=== PATIENT | female | born 1935 | race African-American/Black ===

== ENCOUNTER 2022-11-21 11:31 | Inpatient (IN) | payer MEDICARE, SELFPAY ==
[2022-11-21 12:49] LABS: Acetaminophen Less than 10.0 mcg/mL (10.0-30.0); Alcohol Less than 10 mg/dL (Less than 10); Hemoglobin 12.3 g/dL (12.0-16.0); Mean Corpuscular Hemoglobin 29.3 pg (27.0-31.0); Mean Corpuscular Volume 91.6 fl (78.0-98.0); Platelet Count 239 10x3/uL (130-400); RBC Distribution Width 12.5 % (11.5-14.5); Salicylate Less than 8.0 mg/dL (15.0-30.0); White Blood Cell (WBC) Count 16.2 10x3/uL (4.8-10.8)
[2022-11-21 13:27] LABS: #Eosinphils 0.1 thou/uL (0.0-0.7); #Lymphocytes 1.7 thou/uL (1.20-3.40); #Monocytes 1.2 thou/uL (0.11-0.59); #Neutrophils 13.2 thou/uL (1.40-6.50); %Basophils 0.1 % (0.0-1.0); %Eosinophils 0.7 % (0.0-10.0); %Lymphocytes 10.6 % (21.0-51.0); %Monocytes 7.3 % (0.0-10.0); %Neutrophils 81.4 % (42.0-75.0); ALT (SGPT) 7 U/L (8-55); AST (SGOT) 15 U/L (5-34); Albumin 2.7 g/dL (3.4-4.8); Alkaline Phosphatase 53 U/L (40-110); Anion Gap 17 mmol/L (10-20); BUN (Urea Nitrogen) 41 mg/dL (9.8-20.1); Band 8 % (5-11); Bilirubin, Total 0.5 mg/dL (0.2-1.2); CK (CPK) 36 U/L (29-168); Calc. Creatinine Clearance 0 mL/min (70-130); Calcium 9.6 mg/dL (7.8-10.44); Carbon Dioxide 23 mmol/L (23-31); Chloride 106 mmol/L (98-107); Eosinophils 1 % (0-10); Estimated GFR 46; Globulin 4.9 g/dL (2.4-3.5); Glucose 209 mg/dL (83-110); Lipase 31 U/L (8-78); Lymphocytes 11 % (21-51); MDiff Complete? YES; Monocytes 6 % (0-10); Neutrophil 74 % (42-75); Platelet Morphology Comment Appears Adequate; Potassium 4.4 mmol/L (3.5-5.1); Protein, Total 7.6 g/dL (5.8-8.1); RBC Morphology Normal; Sodium 142 mmol/L (136-145)
[2022-11-21] MEDS ORDERED: Aspirin Chewable 81 MG TAB ONE (14:13)
[2022-11-21 14:15] LABS: Amphetamine Not Detected (NotDetected); Barbiturates Screen Not Detected (NotDetected); Benzodiazepine Screen Not Detected (NotDetected); Cocaine Metabolite Screen Not Detected (NotDetected); Methadone Not Detected (NotDetected); Methamphetamine Not Detected (NotDetected); Opiate Screen Not Detected (NotDetected); Oxycodone Screen Not Detected (NotDetected); Phencyclidine (PCP) Not Detected (NotDetected); THC/Cannabinoid Screen Not Detected (NotDetected); Tricyclic Screen Not Detected (NotDetected)
[2022-11-21 14:24] LABS: Bacteria/HPF 4+ HPF (None Seen); Bilirubin Negative (Negative); Blood, Urine Trace (Negative); Clarity Turbid (Clear); Glucose, Urine (Dipstick) Normal (Negative); Ketone, Urine Negative (Negative); Leukocyte 250 Leu/uL (Negative); Nitrite Negative (Negative); Protein, Urine (Dipstick) 30 mg/dL (Neg-Trace); Specific Gravity, Urine 1.026 (1.002-1.036); Squamous Epithelial 0-3 HPF (0-3)
[2022-11-21 14:24] LABS: SARS-CoV-2 NAA Rapid Test Not Detected (NotDetected)
[2022-11-21] MEDS ORDERED: Furosemide 20 MG/2 ML VIAL SLOW IVP SCH (15:15)
[2022-11-21 16:01] LABS: Troponin I 0.137 ng/mL (< 0.028)
[2022-11-21] MEDS: cefTRIAXone\\ROCEPHIN 1 GM in Sodium Chloride 0.9% 100 ML IVPB SCH (20:47)
[2022-11-21] MEDS ORDERED: Ondansetron PF 4 MG/2 ML Vial IVP PRN (21:15)
[2022-11-21] MEDS ORDERED: Ondansetron ODT 4 MG TAB SL PRN (21:15)
[2022-11-21] MEDS ORDERED: Sodium Chloride 0.9% 1,000 ML IV SCH (21:15)
[2022-11-22] MEDS: Citalopram 20 MG TAB PO SCH (09:09)
[2022-11-22] MEDS: Amlodipine 5 MG TAB PO SCH (09:09)
[2022-11-22] MEDS ORDERED: Dextrose 5% in Water 1,000 ML IV PRN (09:34)
[2022-11-22] MEDS ORDERED: Dextrose 50% Abboject 50 ML SYRINGE SLOW IVP PRN (09:34)
[2022-11-22] MEDS ORDERED: HumaLOG 300 UNITS/3 ML VIAL SC PRN (09:34)
[2022-11-22] MEDS: Potassium Chloride 10 MEQ TAB PO SCH (13:28)
[2022-11-22] MEDS: cefTRIAXone\\ROCEPHIN 1 GM in Sodium Chloride 0.9% 100 ML IVPB SCH (15:52)
[2022-11-22] MEDS: Atorvastatin Calcium 10 MG TAB PO SCH (19:57)
[2022-11-23 05:46] LABS: #Eosinphils 0.1 thou/uL (0.0-0.7); #Lymphocytes 1.8 thou/uL (1.20-3.40); #Neutrophils 9.8 thou/uL (1.40-6.50); %Basophils 0.1 % (0.0-1.0); %Eosinophils 0.9 % (0.0-10.0); %Lymphocytes 13.9 % (21.0-51.0); %Monocytes 8.1 % (0.0-10.0); %Neutrophils 77.1 % (42.0-75.0); Hemoglobin 10.9 g/dL (12.0-16.0); Mean Corpuscular HGB CONC 31.8 g/dL (32.0-36.0); Mean Corpuscular Hemoglobin 29.7 pg (27.0-31.0); Mean Corpuscular Volume 93.3 fl (78.0-98.0); Platelet Count 240 10x3/uL (130-400); RBC Distribution Width 12.4 % (11.5-14.5); Red Blood Cell (RBC) Count 3.67 mill/uL (4.20-5.40); White Blood Cell (WBC) Count 12.8 10x3/uL (4.8-10.8)
[2022-11-23 06:09] LABS: Anion Gap 13 mmol/L (10-20); BUN (Urea Nitrogen) 26 mg/dL (9.8-20.1); Calc. Creatinine Clearance 59 mL/min (70-130); Calcium 9.4 mg/dL (7.8-10.44); Carbon Dioxide 25 mmol/L (23-31); Chloride 110 mmol/L (98-107); Estimated GFR 75; Glucose 140 mg/dL (83-110); Magnesium 1.7 mg/dL (1.6-2.6); Potassium 3.7 mmol/L (3.5-5.1); Sodium 144 mmol/L (136-145)
[2022-11-23] MEDS: Amlodipine 5 MG TAB PO SCH (08:21)
[2022-11-23] MEDS: Citalopram 20 MG TAB PO SCH (08:21)
[2022-11-23] MEDS: Potassium Chloride 10 MEQ TAB PO SCH (08:21)
[2022-11-23] MEDS ORDERED: Electrolyte Replacement Protocol 1 EACH FS SCH (12:30)
[2022-11-23] MEDS ORDERED: Magnesium 2 GM/50 ML(in water) 2 GM in Premix Bag 1 BAG IVPB SCH (13:15)
[2022-11-23] MEDS: cefTRIAXone\\ROCEPHIN 1 GM in Sodium Chloride 0.9% 100 ML IVPB SCH (17:33)
[2022-11-23] MEDS: Lactated Ringer's 1,000 ML IV SCH (18:24)
[2022-11-23] MEDS: Atorvastatin Calcium 10 MG TAB PO SCH (22:01)
[2022-11-24 05:42] LABS: #Eosinphils 0.1 thou/uL (0.0-0.7); #Lymphocytes 1.7 thou/uL (1.20-3.40); #Monocytes 0.9 thou/uL (0.11-0.59); %Eosinophils 0.7 % (0.0-10.0); %Lymphocytes 14.2 % (21.0-51.0); %Monocytes 7.9 % (0.0-10.0); %Neutrophils 77.2 % (42.0-75.0); Hemoglobin 10.5 g/dL (12.0-16.0); Mean Corpuscular HGB CONC 31.5 g/dL (32.0-36.0); Mean Corpuscular Hemoglobin 29.1 pg (27.0-31.0); Mean Corpuscular Volume 92.5 fl (78.0-98.0); Mean Platelet Volume 9.2 fL (7.4-10.4); Platelet Count 251 10x3/uL (130-400); RBC Distribution Width 12.6 % (11.5-14.5); White Blood Cell (WBC) Count 11.6 10x3/uL (4.8-10.8)
[2022-11-24 06:16] LABS: Anion Gap 13 mmol/L (10-20); BUN (Urea Nitrogen) 20 mg/dL (9.8-20.1); Calc. Creatinine Clearance 62 mL/min (70-130); Carbon Dioxide 27 mmol/L (23-31); Chloride 108 mmol/L (98-107); Estimated GFR 79; Glucose 130 mg/dL (83-110); Magnesium 1.9 mg/dL (1.6-2.6); Potassium 3.6 mmol/L (3.5-5.1); Sodium 144 mmol/L (136-145)
[2022-11-24] MEDS: Citalopram 20 MG TAB PO SCH (08:17)
[2022-11-24] MEDS: Potassium Chloride 10 MEQ TAB PO SCH (08:17)
[2022-11-24] MEDS: Metoprolol Tartrate 50 MG TAB PO SCH ×2 (08:18→08:30)
[2022-11-24] MEDS: Lactated Ringer's 1,000 ML IV SCH ×2 (08:18→09:41)
[2022-11-24] MEDS ORDERED: Magnesium 2 GM/50 ML(in water) 2 GM in Premix Bag 1 BAG IVPB SCH (09:00)
[2022-11-24] MEDS ORDERED: FLU VACC QS2022-23(65YR UP)/PF 240 MCG/0.7 ML SYRINGE IM ONE (09:00)
[2022-11-24] MEDS ORDERED: Furosemide 20 MG TAB PO SCH (11:45)
[2022-11-24] MEDS: HumaLOG 300 UNITS/3 ML VIAL SC PRN (12:34)
[2022-11-24] MEDS: cefTRIAXone\\ROCEPHIN 1 GM in Sodium Chloride 0.9% 100 ML IVPB SCH (15:18)
[2022-11-24] MEDS: Acetaminophen 325 MG TAB PO PRN (15:20)
[2022-11-24] MEDS: Carvedilol 6.25 MG TAB PO SCH (17:47)
[2022-11-24] MEDS: Atorvastatin Calcium 10 MG TAB PO SCH (21:19)
[2022-11-25 06:20] LABS: #Eosinphils 0.2 thou/uL (0.0-0.7); #Lymphocytes 1.4 thou/uL (1.20-3.40); #Monocytes 0.9 thou/uL (0.11-0.59); #Neutrophils 8.2 thou/uL (1.40-6.50); %Basophils 0.1 % (0.0-1.0); %Eosinophils 1.5 % (0.0-10.0); %Lymphocytes 12.8 % (21.0-51.0); %Monocytes 8.2 % (0.0-10.0); %Neutrophils 77.4 % (42.0-75.0); Hemoglobin 11.5 g/dL (12.0-16.0); Mean Corpuscular HGB CONC 31.5 g/dL (32.0-36.0); Mean Corpuscular Hemoglobin 29.3 pg (27.0-31.0); Mean Corpuscular Volume 92.8 fl (78.0-98.0); Mean Platelet Volume 9.2 fL (7.4-10.4); Platelet Count 252 10x3/uL (130-400); RBC Distribution Width 12.6 % (11.5-14.5); Red Blood Cell (RBC) Count 3.94 mill/uL (4.20-5.40); White Blood Cell (WBC) Count 10.6 10x3/uL (4.8-10.8)
[2022-11-25 06:42] LABS: Anion Gap 11 mmol/L (10-20); BUN (Urea Nitrogen) 15 mg/dL (9.8-20.1); Calc. Creatinine Clearance 70 mL/min (70-130); Calcium 9.1 mg/dL (7.8-10.44); Carbon Dioxide 29 mmol/L (23-31); Cardiac Risk 4.1 (Less than 4.5); Chloride 107 mmol/L (98-107); Cholesterol 99 mg/dl (< 200 Desired); Estimated GFR 85; Glucose 104 mg/dL (83-110); HDL Cholesterol 24 mg/dL (>60 Neg Risk); LDL Cholesterol, Calculated 56 mg/dL; Sodium 143 mmol/L (136-145); Triglycerides 93 mg/dL (Less than 150)
[2022-11-25] MEDS ORDERED: Magnesium 2 GM/50 ML(in water) 2 GM in Premix Bag 1 BAG IVPB SCH (08:00)
[2022-11-25] MEDS: Potassium Chloride 10 MEQ TAB PO SCH (08:51)
[2022-11-25] MEDS: Furosemide 20 MG TAB PO SCH (08:51)
[2022-11-25] MEDS: Carvedilol 6.25 MG TAB PO SCH ×2 (08:51→16:04)
[2022-11-25] MEDS: Citalopram 20 MG TAB PO SCH (08:51)
[2022-11-25] MEDS: cefTRIAXone\\ROCEPHIN 1 GM in Sodium Chloride 0.9% 100 ML IVPB SCH (16:04)
[2022-11-25] MEDS: HumaLOG 300 UNITS/3 ML VIAL SC PRN (17:05)
[2022-11-25] MEDS: Atorvastatin Calcium 10 MG TAB PO SCH (21:24)
[2022-11-26] MEDS: Citalopram 20 MG TAB PO SCH (09:05)
[2022-11-26] MEDS: Carvedilol 6.25 MG TAB PO SCH ×2 (09:05→16:52)
[2022-11-26] MEDS: Potassium Chloride 10 MEQ TAB PO SCH (09:05)
[2022-11-26] MEDS: Furosemide 20 MG TAB PO SCH (09:05)
[2022-11-26] MEDS: Atorvastatin Calcium 10 MG TAB PO SCH (23:17)
[2022-11-27] MEDS: Carvedilol 6.25 MG TAB PO SCH ×2 (09:31→18:20)
[2022-11-27] MEDS: Furosemide 20 MG TAB PO SCH (09:31)
[2022-11-27] MEDS: Citalopram 20 MG TAB PO SCH (09:31)
[2022-11-27] MEDS ORDERED: Potassium Bicarbonate/Cit Ac 20 MEQ TAB PO SCH (09:45)
[2022-11-27] MEDS: Potassium Chloride 10 MEQ TAB PO SCH (11:09)
[2022-11-27] MEDS ORDERED: PNEUMOC 20-VAL CONJ-DIP CRM/PF 0.5 ML SYRINGE IM ONE (13:45)
[2022-11-27 17:28] LABS: Magnesium 1.7 mg/dL (1.6-2.6)
[2022-11-27] MEDS ORDERED: Magnesium 2 GM/50 ML(in water) 2 GM in Premix Bag 1 BAG IVPB SCH (18:00)
[2022-11-27] MEDS: Acetaminophen 325 MG TAB PO PRN (18:20)
[2022-11-27] MEDS: Atorvastatin Calcium 10 MG TAB PO SCH (21:16)
[2022-11-28 06:28] LABS: Magnesium 2.1 mg/dL (1.6-2.6)
[2022-11-28] MEDS ORDERED: FLU VACC QS2022-23(65YR UP)/PF 240 MCG/0.7 ML SYRINGE IM ONE (09:00)
[2022-11-28] MEDS: Carvedilol 6.25 MG TAB PO SCH ×2 (09:03→17:59)
[2022-11-28] MEDS: Citalopram 20 MG TAB PO SCH (09:03)
[2022-11-28] MEDS: Furosemide 20 MG TAB PO SCH (09:03)
[2022-11-28] MEDS: Potassium Bicarbonate/Cit Ac 20 MEQ TAB PO SCH (09:04)
[2022-11-28] MEDS: Atorvastatin Calcium 10 MG TAB PO SCH (21:18)
[2022-11-28] MEDS: Acetaminophen 325 MG TAB PO PRN (21:19)
[2022-11-29] MEDS: Atorvastatin Calcium 10 MG TAB PO SCH ×2 (01:30→20:54)
[2022-11-29] MEDS: Potassium Bicarbonate/Cit Ac 20 MEQ TAB PO SCH (08:42)
[2022-11-29] MEDS: Citalopram 20 MG TAB PO SCH (08:42)
[2022-11-29] MEDS: Furosemide 20 MG TAB PO SCH (08:43)
[2022-11-29] MEDS: Carvedilol 6.25 MG TAB PO SCH ×2 (08:43→17:24)
[2022-11-29] MEDS: Acetaminophen 325 MG TAB PO PRN (20:54)
[2022-11-30] MEDS: Carvedilol 6.25 MG TAB PO SCH ×2 (08:15→17:30)
[2022-11-30] MEDS: Citalopram 20 MG TAB PO SCH (08:16)
[2022-11-30] MEDS: Potassium Bicarbonate/Cit Ac 20 MEQ TAB PO SCH (08:16)
[2022-11-30] MEDS: Furosemide 20 MG TAB PO SCH (08:26)
[2022-11-30] MEDS: HumaLOG 300 UNITS/3 ML VIAL SC PRN (17:30)
[2022-11-30] MEDS: Atorvastatin Calcium 10 MG TAB PO SCH (21:29)
[2022-11-30] MEDS: Acetaminophen 325 MG TAB PO PRN (21:29)
[2022-12-01 05:37] LABS: #Eosinphils 0.1 thou/uL (0.0-0.7); #Lymphocytes 1.9 thou/uL (1.20-3.40); #Monocytes 1.2 thou/uL (0.11-0.59); %Basophils 0.1 % (0.0-1.0); %Eosinophils 0.7 % (0.0-10.0); %Lymphocytes 14.5 % (21.0-51.0); %Monocytes 9.4 % (0.0-10.0); %Neutrophils 75.3 % (42.0-75.0); Mean Corpuscular HGB CONC 30.7 g/dL (32.0-36.0); Mean Corpuscular Hemoglobin 28.1 pg (27.0-31.0); Mean Corpuscular Volume 91.5 fl (78.0-98.0); Mean Platelet Volume 8.7 fL (7.4-10.4); Platelet Count 279 10x3/uL (130-400); RBC Distribution Width 12.9 % (11.5-14.5); Red Blood Cell (RBC) Count 3.55 mill/uL (4.20-5.40); White Blood Cell (WBC) Count 13.3 10x3/uL (4.8-10.8)
[2022-12-01 05:56] LABS: Anion Gap 12 mmol/L (10-20); BUN (Urea Nitrogen) 32 mg/dL (9.8-20.1); Calc. Creatinine Clearance 60 mL/min (70-130); Calcium 9.3 mg/dL (7.8-10.44); Carbon Dioxide 27 mmol/L (23-31); Chloride 105 mmol/L (98-107); Estimated GFR 74; Glucose 172 mg/dL (83-110); Magnesium 1.8 mg/dL (1.6-2.6); Sodium 140 mmol/L (136-145)
[2022-12-01] MEDS ORDERED: Magnesium 2 GM/50 ML(in water) 2 GM in Premix Bag 1 BAG IVPB SCH (08:00)
[2022-12-01] MEDS: Carvedilol 6.25 MG TAB PO SCH ×2 (08:37→16:39)
[2022-12-01] MEDS: Citalopram 20 MG TAB PO SCH (08:38)
[2022-12-01] MEDS: Furosemide 20 MG TAB PO SCH (08:38)
[2022-12-01] MEDS: Potassium Bicarbonate/Cit Ac 20 MEQ TAB PO SCH (08:38)
[2022-12-01] MEDS: Acetaminophen 325 MG TAB PO SCH ×2 (16:38→21:51)
[2022-12-01] MEDS: Atorvastatin Calcium 10 MG TAB PO SCH (21:51)
[2022-12-01] MEDS: Gabapentin 300 MG CAP PO SCH (21:52)
[2022-12-02 05:23] LABS: #Eosinphils 0.1 thou/uL (0.0-0.7); #Lymphocytes 2.3 thou/uL (1.20-3.40); #Monocytes 1.1 thou/uL (0.11-0.59); #Neutrophils 9.7 thou/uL (1.40-6.50); %Lymphocytes 17.1 % (21.0-51.0); %Monocytes 8.5 % (0.0-10.0); %Neutrophils 73.4 % (42.0-75.0); Mean Corpuscular HGB CONC 31.2 g/dL (32.0-36.0); Mean Corpuscular Hemoglobin 28.6 pg (27.0-31.0); Mean Corpuscular Volume 91.6 fl (78.0-98.0); Mean Platelet Volume 8.5 fL (7.4-10.4); Platelet Count 283 10x3/uL (130-400); RBC Distribution Width 12.9 % (11.5-14.5); Red Blood Cell (RBC) Count 3.49 mill/uL (4.20-5.40); White Blood Cell (WBC) Count 13.2 10x3/uL (4.8-10.8)
[2022-12-02 05:42] LABS: Anion Gap 12 mmol/L (10-20); BUN (Urea Nitrogen) 30 mg/dL (9.8-20.1); Calc. Creatinine Clearance 60 mL/min (70-130); Calcium 9.2 mg/dL (7.8-10.44); Carbon Dioxide 30 mmol/L (23-31); Chloride 103 mmol/L (98-107); Estimated GFR 74; Glucose 134 mg/dL (83-110); Potassium 3.9 mmol/L (3.5-5.1); Sodium 141 mmol/L (136-145)
[2022-12-02] MEDS ORDERED: Magnesium 2 GM/50 ML(in water) 2 GM in Premix Bag 1 BAG IVPB SCH (08:00)
[2022-12-02] MEDS: Citalopram 20 MG TAB PO SCH (08:50)
[2022-12-02] MEDS: Potassium Bicarbonate/Cit Ac 20 MEQ TAB PO SCH (08:50)
[2022-12-02] MEDS: Acetaminophen 325 MG TAB PO SCH ×4 (08:50→21:53)
[2022-12-02] MEDS: Gabapentin 300 MG CAP PO SCH ×3 (08:51→21:53)
[2022-12-02] MEDS: Carvedilol 6.25 MG TAB PO SCH ×2 (08:52→17:40)
[2022-12-02] MEDS ORDERED: Furosemide 40 MG/4 ML VIAL SLOW IVP SCH (09:00)
[2022-12-02] MEDS ORDERED: PNEUMOC 20-VAL CONJ-DIP CRM/PF 0.5 ML SYRINGE IM ONE (12:15)
[2022-12-02] MEDS: HumaLOG 300 UNITS/3 ML VIAL SC PRN (17:43)
[2022-12-02] MEDS: Atorvastatin Calcium 10 MG TAB PO SCH (21:54)
[2022-12-03 05:39] LABS: #Eosinphils 0.1 thou/uL (0.0-0.7); #Lymphocytes 2.4 thou/uL (1.20-3.40); #Monocytes 1.2 thou/uL (0.11-0.59); %Basophils 0.3 % (0.0-1.0); %Eosinophils 0.7 % (0.0-10.0); %Lymphocytes 16.1 % (21.0-51.0); %Monocytes 7.8 % (0.0-10.0); %Neutrophils 75.1 % (42.0-75.0); Hemoglobin 10.3 g/dL (12.0-16.0); Mean Corpuscular HGB CONC 31.6 g/dL (32.0-36.0); Mean Corpuscular Hemoglobin 28.9 pg (27.0-31.0); Mean Corpuscular Volume 91.6 fl (78.0-98.0); Mean Platelet Volume 8.7 fL (7.4-10.4); Platelet Count 289 10x3/uL (130-400); Red Blood Cell (RBC) Count 3.56 mill/uL (4.20-5.40); White Blood Cell (WBC) Count 14.6 10x3/uL (4.8-10.8)
[2022-12-03] MEDS: Gabapentin 300 MG CAP PO SCH ×2 (09:21→11:13)
[2022-12-03] MEDS: Acetaminophen 325 MG TAB PO SCH ×2 (09:22→16:39)
[2022-12-03] MEDS: Citalopram 20 MG TAB PO SCH (09:23)
[2022-12-03] MEDS: Potassium Bicarbonate/Cit Ac 20 MEQ TAB PO SCH (09:23)
[2022-12-03] MEDS: Carvedilol 6.25 MG TAB PO SCH ×2 (09:23→16:40)
[2022-12-03] MEDS: Furosemide 20 MG TAB PO SCH (09:29)
[2022-12-03] MEDS: HumaLOG 300 UNITS/3 ML VIAL SC PRN (11:14)
[2022-12-03 11:29] LABS: Bacteria/HPF None Seen HPF (None Seen); Bilirubin Negative (Negative); Blood, Urine Negative (Negative); CAUTI Indications for Culture Fever or rigors; Clarity Clear (Clear); Glucose, Urine (Dipstick) Normal (Negative); Ketone, Urine Negative (Negative); Leukocyte Negative Leu/uL (Negative); Nitrite Negative (Negative); Protein, Urine (Dipstick) Negative (Neg-Trace); RBC/HPF None Seen HPF (0-3); Specific Gravity, Urine 1.021 (1.002-1.036); Squamous Epithelial 0-3 HPF (0-3); Urobilinogen Normal mg/dL (Less than 2); WBC/HPF 0-3 HPF (0-3); pH, Urine 5.5 (5.0-9.0)
[2022-12-03 11:33] LABS: Urine Culture Reflex No No
[2022-12-03 14:08] VITALS: BMI 26.2
[2022-12-03 16:19] VITALS: BP 116/57; TEMP 97.6
== END 2022-12-03 17:28 | DRG 871 ==
LOC: ERS 11:31 → ERHOLD 14:01 → NEURO 20:11
PROVIDERS: ADMIT Internal Medicine; ATTEND Internal Medicine
DX: A41.4 Sepsis due to anaerobes (principal); Z66 Do not resuscitate; Z20.822 Contact with and (suspected) exposure to COVID-19; Z23 Encounter for immunization; G93.41 Metabolic encephalopathy; I50.23 Acute on chronic systolic (congestive) heart failure; N39.0 Urinary tract infection, site not specified; Z16.11 Resistance to penicillins; I47.1 Supraventricular tachycardia; E46 Unspecified protein-calorie malnutrition; F03.94 Unspecified dementia, unspecified severity, with anxiety; E11.9 Type 2 diabetes mellitus without complications; I11.0 Hypertensive heart disease with heart failure; M46.1 Sacroiliitis, not elsewhere classified; I48.0 Paroxysmal atrial fibrillation; E78.5 Hyperlipidemia, unspecified; Z68.26 Body mass index [BMI] 26.0-26.9, adult; Z88.4 Allergy status to anesthetic agent; Z79.899 Other long term (current) drug therapy; Z90.49 Acquired absence of other specified parts of digestive tract
CPT/HCPCS: 36415; 36416; 70450; 71045; 72170; 78451; 80048; 80053; 80061; 80306; 80307; 81001; 81003; 81015; 82140; 82550; 82553; 83605; 83690; 83735; 83880; 84443; 84484; 85025; 87040; 87077; 87086; 87186; 87811; 90471; 90662; 93005; 93306; 93798; 90677; A9500; G0008; G0009; J0696; J1650; J1815; J1940; J3475; J3490; J7050; J7120

== ENCOUNTER 2022-12-25 18:15 | Inpatient (IN) | payer MEDICARE ==
[~2022-12-25 18:15] MED LIST: Iopamidol-370 76% 500 ML 1 ML ONE
[2022-12-25 18:32] LABS: #Eosinphils 0.1 thou/uL (0.0-0.7); #Lymphocytes 3.3 thou/uL (1.20-3.40); #Monocytes 0.9 thou/uL (0.11-0.59); #Neutrophils 12.4 thou/uL (1.40-6.50); %Eosinophils 0.7 % (0.0-10.0); %Lymphocytes 19.9 % (21.0-51.0); %Monocytes 5.6 % (0.0-10.0); %Neutrophils 73.7 % (42.0-75.0); Mean Corpuscular HGB CONC 30.4 g/dL (32.0-36.0); Mean Corpuscular Hemoglobin 27.9 pg (27.0-31.0); Mean Corpuscular Volume 91.6 fl (78.0-98.0); Mean Platelet Volume 8.6 fL (7.4-10.4); Platelet Count 296 10x3/uL (130-400); White Blood Cell (WBC) Count 16.8 10x3/uL (4.8-10.8)
[2022-12-25 18:39] LABS: Prothrombin Time 16.8 sec (12.0-14.7)
[2022-12-25 18:41] LABS: INR-International Normal Ratio 1.3; PTT 21.8 sec (22.9-36.1)
[2022-12-25 18:52] LABS: ALT (SGPT) 8 U/L (8-55); AST (SGOT) 26 U/L (5-34); Albumin 2.3 g/dL (3.4-4.8); Alkaline Phosphatase 43 U/L (40-110); Anion Gap 16 mmol/L (10-20); BUN (Urea Nitrogen) 35 mg/dL (9.8-20.1); Bilirubin, Total 0.4 mg/dL (0.2-1.2); CK (CPK) 1062 U/L (29-168); Calc. Creatinine Clearance 0 mL/min (70-130); Calcium 9.1 mg/dL (7.8-10.44); Carbon Dioxide 23 mmol/L (23-31); Chloride 106 mmol/L (98-107); Estimated GFR 31; Globulin 4.8 g/dL (2.4-3.5); Glucose 191 mg/dL (83-110); Potassium 5.2 mmol/L (3.5-5.1); Protein, Total 7.1 g/dL (5.8-8.1); Sodium 140 mmol/L (136-145)
[2022-12-25 19:13] LABS: CKMB 14.5 ng/mL (0-6.6)
[2022-12-25 19:53] LABS: Bacteria/HPF 4+ HPF (None Seen); Bilirubin 1+ (Negative); Blood, Urine Negative (Negative); Clarity Turbid (Clear); Glucose, Urine (Dipstick) Normal (Negative); Ketone, Urine Trace mg/dL (Negative); Leukocyte Negative Leu/uL (Negative); Nitrite Negative (Negative); Protein, Urine (Dipstick) 50 mg/dL (Neg-Trace); RBC/HPF 0-3 HPF (0-3); Specific Gravity, Urine 1.026 (1.002-1.036); WBC/HPF 0-3 HPF (0-3); pH, Urine 5.5 (5.0-9.0)
[2022-12-25] MEDS ORDERED: Aspirin 300 MG Suppository ONE (20:14)
[2022-12-25] MEDS ORDERED: cefTRIAXone\\ROCEPHIN 2 GM VIAL ONE (20:14)
[2022-12-25] MEDS ORDERED: Bisacodyl 10 MG SUPP PR PRN (21:56)
[2022-12-25] MEDS ORDERED: Ondansetron PF 4 MG/2 ML Vial IVP PRN (21:56)
[2022-12-25] MEDS ORDERED: Ondansetron ODT 4 MG TAB PO PRN (21:56)
[2022-12-25] MEDS ORDERED: Senokot S 8.6-50 MG TAB PO PRN (21:56)
[2022-12-25] MEDS ORDERED: Acetaminophen 650 MG Suppository PR PRN (21:56)
[2022-12-25] MEDS ORDERED: Bisacodyl 5 MG TAB PO PRN (21:56)
[2022-12-25] MEDS ORDERED: Dextrose 5% in Water 1,000 ML IV PRN (22:03)
[2022-12-25] MEDS ORDERED: HumaLOG 300 UNITS/3 ML VIAL SC PRN (22:03)
[2022-12-25] MEDS ORDERED: Dextrose 50% Abboject 50 ML SYRINGE SLOW IVP PRN (22:03)
[2022-12-25] MEDS ORDERED: Dextrose 5%-Lactated Ringers 1,000 ML IV SCH (22:15)
[2022-12-25 22:18] LABS: Troponin I 0.174 ng/mL (< 0.028)
[2022-12-26 00:23] VITALS: BMI 24.3
[2022-12-26 01:31] LABS: Troponin I 0.176 ng/mL (< 0.028)
[2022-12-26 04:59] LABS: Anion Gap 16 mmol/L (10-20); BUN (Urea Nitrogen) 39 mg/dL (9.8-20.1); Calc. Creatinine Clearance 28 mL/min (70-130); Calcium 8.9 mg/dL (7.8-10.44); Carbon Dioxide 25 mmol/L (23-31); Cardiac Risk 6.4 (Less than 4.5); Chloride 104 mmol/L (98-107); Cholesterol 122 mg/dl (< 200 Desired); Estimated GFR 33; Glucose 156 mg/dL (83-110); HDL Cholesterol 19 mg/dL (>60 Neg Risk); LDL Cholesterol, Calculated 68 mg/dL; Sodium 141 mmol/L (136-145); Triglycerides 173 mg/dL (Less than 150)
[2022-12-26] MEDS ORDERED: Famotidine/PF 20 mg/2ml Vial SLOW IVP SCH ×2 (09:00→10:00)
[2022-12-26] MEDS ORDERED: Famotidine 20 MG TAB PO SCH (09:00)
[2022-12-26] MEDS: Carvedilol 6.25 MG TAB PO SCH ×2 (09:39→17:04)
[2022-12-26] MEDS: Gabapentin 300 MG CAP PO SCH ×3 (09:39→21:40)
[2022-12-26] MEDS: Heparin 5,000 UNITS/ML VIAL SC SCH ×2 (11:10→21:41)
[2022-12-26] MEDS: Furosemide 20 MG TAB PO SCH (16:55)
[2022-12-26] MEDS: Citalopram 20 MG TAB PO SCH (16:55)
[2022-12-26] MEDS: Aspirin 81 mg Enteric Coated Tablet PO SCH (16:56)
[2022-12-26] MEDS ORDERED: Gabapentin 300 MG CAP PO SCH (21:00)
[2022-12-26] MEDS ORDERED: Atorvastatin Calcium 10 MG TAB PO SCH (21:00)
[2022-12-27 04:53] LABS: #Basophils 0.1 thou/uL (0.0-0.2); #Eosinphils 0.1 thou/uL (0.0-0.7); #Lymphocytes 2.5 thou/uL (1.20-3.40); #Monocytes 1.2 thou/uL (0.11-0.59); #Neutrophils 10.6 thou/uL (1.40-6.50); %Basophils 0.6 % (0.0-1.0); %Eosinophils 0.6 % (0.0-10.0); %Lymphocytes 17.2 % (21.0-51.0); %Monocytes 8.3 % (0.0-10.0); %Neutrophils 73.4 % (42.0-75.0); Hemoglobin 9.8 g/dL (12.0-16.0); Mean Corpuscular HGB CONC 30.5 g/dL (32.0-36.0); Mean Corpuscular Hemoglobin 28.1 pg (27.0-31.0); Mean Platelet Volume 8.3 fL (7.4-10.4); Platelet Count 293 10x3/uL (130-400); RBC Distribution Width 14.2 % (11.5-14.5); Red Blood Cell (RBC) Count 3.47 mill/uL (4.20-5.40); White Blood Cell (WBC) Count 14.5 10x3/uL (4.8-10.8)
[2022-12-27 05:20] LABS: Anion Gap 13 mmol/L (10-20); BUN (Urea Nitrogen) 38 mg/dL (9.8-20.1); CK (CPK) 1234 U/L (29-168); Calc. Creatinine Clearance 35 mL/min (70-130); Calcium 8.9 mg/dL (7.8-10.44); Carbon Dioxide 27 mmol/L (23-31); Chloride 107 mmol/L (98-107); Estimated GFR 44; Glucose 119 mg/dL (83-110); Potassium 3.9 mmol/L (3.5-5.1); Sodium 143 mmol/L (136-145)
[2022-12-27] MEDS ORDERED: Lactated Ringer's 1,000 ML IV SCH (07:15)
[2022-12-27] MEDS: Famotidine/PF 20 mg/2ml Vial SLOW IVP SCH ×2 (09:47→09:48)
[2022-12-27] MEDS: Citalopram 20 MG TAB PO SCH (09:48)
[2022-12-27] MEDS: Gabapentin 300 MG CAP PO SCH ×3 (09:48→22:51)
[2022-12-27] MEDS: Carvedilol 6.25 MG TAB PO SCH ×2 (09:49→18:13)
[2022-12-27] MEDS: Furosemide 20 MG TAB PO SCH (09:49)
[2022-12-27] MEDS: Aspirin 81 mg Enteric Coated Tablet PO SCH (09:49)
[2022-12-27] MEDS: Heparin 5,000 UNITS/ML VIAL SC SCH ×2 (09:49→22:50)
[2022-12-27] MEDS: Famotidine 20 MG TAB PO SCH (10:00)
[2022-12-27] MEDS ORDERED: Lactated Ringer's 500 ML IV SCH (18:00)
[2022-12-27] MEDS ORDERED: SODIUM CHLORIDE 0.9% IVPB SCH (18:00)
[2022-12-27] MEDS ORDERED: AMPICILLIN IVPB SCH (18:00)
[2022-12-27] MEDS: Lactated Ringer's 1,000 ML IV SCH (18:14)
[2022-12-27] MEDS: AMPicillin 1 GM in Sodium Chloride 0.9% 100 ML IVPB SCH (18:41)
[2022-12-27] MEDS: Atorvastatin Calcium 40 MG TAB PO SCH (22:52)
[2022-12-28] MEDS: AMPicillin 1 GM in Sodium Chloride 0.9% 100 ML IVPB SCH ×3 (02:32→17:53)
[2022-12-28] MEDS ORDERED: Nitroglycerin 0.4 MG TAB (25 Tab Bottle) SL PRN (04:34)
[2022-12-28 04:35] LABS: #Eosinphils 0.1 thou/uL (0.0-0.7); #Lymphocytes 2.1 thou/uL (1.20-3.40); #Neutrophils 7.8 thou/uL (1.40-6.50); %Basophils 0.1 % (0.0-1.0); %Eosinophils 0.9 % (0.0-10.0); %Lymphocytes 18.8 % (21.0-51.0); %Monocytes 8.9 % (0.0-10.0); %Neutrophils 71.3 % (42.0-75.0); Hemoglobin 9.1 g/dL (12.0-16.0); Mean Corpuscular HGB CONC 30.9 g/dL (32.0-36.0); Mean Corpuscular Hemoglobin 28.5 pg (27.0-31.0); Mean Corpuscular Volume 92.3 fl (78.0-98.0); Mean Platelet Volume 8.6 fL (7.4-10.4); Platelet Count 252 10x3/uL (130-400); RBC Distribution Width 14.1 % (11.5-14.5); Red Blood Cell (RBC) Count 3.19 mill/uL (4.20-5.40)
[2022-12-28] MEDS: Lactated Ringer's 1,000 ML IV SCH ×2 (04:59→16:40)
[2022-12-28 05:01] LABS: Anion Gap 11 mmol/L (10-20); BUN (Urea Nitrogen) 31 mg/dL (9.8-20.1); CK (CPK) 540 U/L (29-168); Calc. Creatinine Clearance 54 mL/min (70-130); Calcium 8.8 mg/dL (7.8-10.44); Carbon Dioxide 28 mmol/L (23-31); Chloride 106 mmol/L (98-107); Estimated GFR 74; Glucose 134 mg/dL (83-110); Magnesium 1.5 mg/dL (1.6-2.6); Potassium 3.5 mmol/L (3.5-5.1); Sodium 141 mmol/L (136-145)
[2022-12-28 05:33] LABS: Troponin I 0.084 ng/mL (< 0.028)
[2022-12-28] MEDS: Furosemide 20 MG TAB PO SCH ×2 (09:49→11:12)
[2022-12-28] MEDS: Heparin 5,000 UNITS/ML VIAL SC SCH ×2 (11:12→21:46)
[2022-12-28] MEDS: Carvedilol 6.25 MG TAB PO SCH ×2 (11:14→16:38)
[2022-12-28] MEDS: Gabapentin 300 MG CAP PO SCH ×3 (11:14→21:40)
[2022-12-28] MEDS: Citalopram 20 MG TAB PO SCH (11:16)
[2022-12-28] MEDS: Famotidine 20 MG TAB PO SCH (11:17)
[2022-12-28] MEDS: Aspirin 81 mg Enteric Coated Tablet PO SCH (11:19)
[2022-12-28] MEDS: Atorvastatin Calcium 40 MG TAB PO SCH (21:40)
[2022-12-29] MEDS: AMPicillin 1 GM in Sodium Chloride 0.9% 100 ML IVPB SCH ×4 (02:07→23:15)
[2022-12-29 05:03] LABS: #Basophils 0.1 thou/uL (0.0-0.2); #Eosinphils 0.1 thou/uL (0.0-0.7); #Lymphocytes 2.3 thou/uL (1.20-3.40); #Neutrophils 6.9 thou/uL (1.40-6.50); %Basophils 0.7 % (0.0-1.0); %Eosinophils 1.1 % (0.0-10.0); %Monocytes 9.3 % (0.0-10.0); %Neutrophils 66.9 % (42.0-75.0); Hemoglobin 9.3 g/dL (12.0-16.0); Mean Corpuscular HGB CONC 31.8 g/dL (32.0-36.0); Mean Corpuscular Volume 91.1 fl (78.0-98.0); Mean Platelet Volume 8.4 fL (7.4-10.4); Platelet Count 241 10x3/uL (130-400); RBC Distribution Width 14.2 % (11.5-14.5); Red Blood Cell (RBC) Count 3.19 mill/uL (4.20-5.40); White Blood Cell (WBC) Count 10.3 10x3/uL (4.8-10.8)
[2022-12-29 05:26] LABS: Anion Gap 15 mmol/L (10-20); BUN (Urea Nitrogen) 23 mg/dL (9.8-20.1); CK (CPK) 260 U/L (29-168); Calc. Creatinine Clearance 63 mL/min (70-130); Carbon Dioxide 25 mmol/L (23-31); Chloride 107 mmol/L (98-107); Estimated GFR 85; Glucose 126 mg/dL (83-110); Potassium 3.6 mmol/L (3.5-5.1); Sodium 143 mmol/L (136-145)
[2022-12-29] MEDS: Heparin 5,000 UNITS/ML VIAL SC SCH ×2 (08:18→21:03)
[2022-12-29] MEDS: Citalopram 20 MG TAB PO SCH (08:20)
[2022-12-29] MEDS: Gabapentin 300 MG CAP PO SCH ×3 (08:20→21:03)
[2022-12-29] MEDS: Furosemide 20 MG TAB PO SCH (08:21)
[2022-12-29] MEDS: Famotidine 20 MG TAB PO SCH (08:21)
[2022-12-29] MEDS: Carvedilol 6.25 MG TAB PO SCH ×2 (08:21→18:19)
[2022-12-29] MEDS: Aspirin 81 mg Enteric Coated Tablet PO SCH (08:22)
[2022-12-29] MEDS ORDERED: Magnesium 2 GM/50 ML(in water) 2 GM in Premix Bag 1 BAG IVPB SCH (16:45)
[2022-12-29] MEDS: Atorvastatin Calcium 40 MG TAB PO SCH (21:03)
[2022-12-30 06:03] LABS: #Basophils 0.1 thou/uL (0.0-0.2); #Eosinphils 0.1 thou/uL (0.0-0.7); #Lymphocytes 2.6 thou/uL (1.20-3.40); #Neutrophils 5.8 thou/uL (1.40-6.50); %Basophils 0.8 % (0.0-1.0); %Lymphocytes 26.6 % (21.0-51.0); %Monocytes 10.8 % (0.0-10.0); %Neutrophils 60.8 % (42.0-75.0); Hemoglobin 8.8 g/dL (12.0-16.0); Mean Corpuscular HGB CONC 31.1 g/dL (32.0-36.0); Mean Corpuscular Hemoglobin 28.3 pg (27.0-31.0); Mean Platelet Volume 8.2 fL (7.4-10.4); Platelet Count 238 10x3/uL (130-400); RBC Distribution Width 14.5 % (11.5-14.5); White Blood Cell (WBC) Count 9.6 10x3/uL (4.8-10.8)
[2022-12-30] MEDS: AMPicillin 1 GM in Sodium Chloride 0.9% 100 ML IVPB SCH ×4 (06:37→23:57)
[2022-12-30 06:38] LABS: Anion Gap 10 mmol/L (10-20); BUN (Urea Nitrogen) 17 mg/dL (9.8-20.1); Calc. Creatinine Clearance 68 mL/min (70-130); Calcium 8.6 mg/dL (7.8-10.44); Carbon Dioxide 27 mmol/L (23-31); Chloride 107 mmol/L (98-107); Estimated GFR 87; Glucose 121 mg/dL (83-110); Potassium 3.4 mmol/L (3.5-5.1); Sodium 141 mmol/L (136-145)
[2022-12-30] MEDS: Furosemide 20 MG TAB PO SCH (10:20)
[2022-12-30] MEDS: Aspirin 81 mg Enteric Coated Tablet PO SCH (10:20)
[2022-12-30] MEDS: Famotidine 20 MG TAB PO SCH (10:21)
[2022-12-30] MEDS: Gabapentin 300 MG CAP PO SCH ×3 (10:21→21:33)
[2022-12-30] MEDS: Heparin 5,000 UNITS/ML VIAL SC SCH ×2 (10:22→21:33)
[2022-12-30] MEDS: Citalopram 20 MG TAB PO SCH (10:22)
[2022-12-30] MEDS: Carvedilol 6.25 MG TAB PO SCH ×2 (10:26→18:18)
[2022-12-30] MEDS: Atorvastatin Calcium 40 MG TAB PO SCH (21:33)
[2022-12-31] MEDS: AMPicillin 1 GM in Sodium Chloride 0.9% 100 ML IVPB SCH ×4 (04:33→23:08)
[2022-12-31 04:46] LABS: #Eosinphils 0.2 thou/uL (0.0-0.7); #Lymphocytes 2.7 thou/uL (1.20-3.40); #Monocytes 1.2 thou/uL (0.11-0.59); #Neutrophils 6.7 thou/uL (1.40-6.50); %Basophils 0.1 % (0.0-1.0); %Eosinophils 1.7 % (0.0-10.0); %Lymphocytes 24.9 % (21.0-51.0); %Monocytes 10.8 % (0.0-10.0); %Neutrophils 62.6 % (42.0-75.0); Mean Corpuscular HGB CONC 31.2 g/dL (32.0-36.0); Mean Corpuscular Hemoglobin 28.5 pg (27.0-31.0); Mean Corpuscular Volume 91.4 fl (78.0-98.0); Mean Platelet Volume 8.4 fL (7.4-10.4); Platelet Count 233 10x3/uL (130-400); RBC Distribution Width 14.9 % (11.5-14.5); Red Blood Cell (RBC) Count 3.14 mill/uL (4.20-5.40); White Blood Cell (WBC) Count 10.7 10x3/uL (4.8-10.8)
[2022-12-31 05:11] LABS: Anion Gap 10 mmol/L (10-20); BUN (Urea Nitrogen) 15 mg/dL (9.8-20.1); Calc. Creatinine Clearance 60 mL/min (70-130); Calcium 8.7 mg/dL (7.8-10.44); Carbon Dioxide 28 mmol/L (23-31); Chloride 108 mmol/L (98-107); Estimated GFR 83; Glucose 124 mg/dL (83-110); Potassium 3.8 mmol/L (3.5-5.1); Sodium 142 mmol/L (136-145)
[2022-12-31] MEDS: Carvedilol 6.25 MG TAB PO SCH ×2 (08:02→16:47)
[2022-12-31] MEDS: Citalopram 20 MG TAB PO SCH (08:02)
[2022-12-31] MEDS: Famotidine 20 MG TAB PO SCH (08:03)
[2022-12-31] MEDS: Gabapentin 300 MG CAP PO SCH ×3 (08:03→20:39)
[2022-12-31] MEDS: Furosemide 20 MG TAB PO SCH (08:03)
[2022-12-31] MEDS: Aspirin 81 mg Enteric Coated Tablet PO SCH (08:04)
[2022-12-31] MEDS: Heparin 5,000 UNITS/ML VIAL SC SCH ×2 (08:06→20:38)
[2022-12-31] MEDS: Atorvastatin Calcium 40 MG TAB PO SCH (20:39)
[2023-01-01] MEDS: AMPicillin 1 GM in Sodium Chloride 0.9% 100 ML IVPB SCH ×4 (05:33→23:28)
[2023-01-01 07:35] LABS: #Eosinphils 0.1 thou/uL (0.0-0.7); #Lymphocytes 2.3 thou/uL (1.20-3.40); #Monocytes 1.1 thou/uL (0.11-0.59); %Basophils 0.1 % (0.0-1.0); %Eosinophils 1.4 % (0.0-10.0); %Lymphocytes 23.8 % (21.0-51.0); %Monocytes 11.5 % (0.0-10.0); %Neutrophils 63.1 % (42.0-75.0); Hemoglobin 9.5 g/dL (12.0-16.0); Mean Corpuscular HGB CONC 31.3 g/dL (32.0-36.0); Mean Corpuscular Hemoglobin 28.9 pg (27.0-31.0); Mean Corpuscular Volume 92.4 fl (78.0-98.0); Mean Platelet Volume 7.8 fL (7.4-10.4); Platelet Count 222 10x3/uL (130-400); RBC Distribution Width 14.9 % (11.5-14.5); Red Blood Cell (RBC) Count 3.27 mill/uL (4.20-5.40); White Blood Cell (WBC) Count 9.5 10x3/uL (4.8-10.8)
[2023-01-01 07:53] LABS: Anion Gap 11 mmol/L (10-20); BUN (Urea Nitrogen) 13 mg/dL (9.8-20.1); Calc. Creatinine Clearance 64 mL/min (70-130); Calcium 8.4 mg/dL (7.8-10.44); Carbon Dioxide 28 mmol/L (23-31); Chloride 107 mmol/L (98-107); Estimated GFR 85; Glucose 97 mg/dL (83-110); Potassium 3.4 mmol/L (3.5-5.1); Sodium 143 mmol/L (136-145)
[2023-01-01] MEDS: Citalopram 20 MG TAB PO SCH (08:31)
[2023-01-01] MEDS: Gabapentin 300 MG CAP PO SCH ×3 (08:31→20:03)
[2023-01-01] MEDS: Furosemide 20 MG TAB PO SCH (08:31)
[2023-01-01] MEDS: Aspirin 81 mg Enteric Coated Tablet PO SCH (08:31)
[2023-01-01] MEDS: Famotidine 20 MG TAB PO SCH (08:32)
[2023-01-01] MEDS: Carvedilol 6.25 MG TAB PO SCH ×2 (08:32→17:53)
[2023-01-01] MEDS: Heparin 5,000 UNITS/ML VIAL SC SCH ×2 (08:32→20:03)
[2023-01-01] MEDS ORDERED: Potassium Chloride 20 MEQ TAB PO SCH (08:45)
[2023-01-01] MEDS: Atorvastatin Calcium 40 MG TAB PO SCH (20:03)
[2023-01-02 04:22] LABS: #Eosinphils 0.2 thou/uL (0.0-0.7); #Lymphocytes 2.8 thou/uL (1.20-3.40); #Monocytes 1.2 thou/uL (0.11-0.59); #Neutrophils 5.9 thou/uL (1.40-6.50); %Basophils 0.2 % (0.0-1.0); %Eosinophils 2.2 % (0.0-10.0); %Lymphocytes 27.6 % (21.0-51.0); %Monocytes 11.9 % (0.0-10.0); Hemoglobin 10.3 g/dL (12.0-16.0); Mean Corpuscular HGB CONC 30.9 g/dL (32.0-36.0); Mean Corpuscular Hemoglobin 28.6 pg (27.0-31.0); Mean Corpuscular Volume 92.4 fl (78.0-98.0); Mean Platelet Volume 8.4 fL (7.4-10.4); Platelet Count 215 10x3/uL (130-400); RBC Distribution Width 15.5 % (11.5-14.5); Red Blood Cell (RBC) Count 3.61 mill/uL (4.20-5.40); White Blood Cell (WBC) Count 10.2 10x3/uL (4.8-10.8)
[2023-01-02] MEDS: AMPicillin 1 GM in Sodium Chloride 0.9% 100 ML IVPB SCH ×4 (04:30→22:48)
[2023-01-02 04:48] LABS: Anion Gap 14 mmol/L (10-20); BUN (Urea Nitrogen) 12 mg/dL (9.8-20.1); Calc. Creatinine Clearance 68 mL/min (70-130); Calcium 8.7 mg/dL (7.8-10.44); Carbon Dioxide 25 mmol/L (23-31); Chloride 108 mmol/L (98-107); Estimated GFR 87; Glucose 95 mg/dL (83-110); Sodium 143 mmol/L (136-145)
[2023-01-02] MEDS: Aspirin 81 mg Enteric Coated Tablet PO SCH (08:44)
[2023-01-02] MEDS: Citalopram 20 MG TAB PO SCH (08:44)
[2023-01-02] MEDS: Gabapentin 300 MG CAP PO SCH ×3 (08:44→20:34)
[2023-01-02] MEDS: Furosemide 20 MG TAB PO SCH (08:45)
[2023-01-02] MEDS: Famotidine 20 MG TAB PO SCH (08:45)
[2023-01-02] MEDS: Heparin 5,000 UNITS/ML VIAL SC SCH ×2 (08:45→20:35)
[2023-01-02] MEDS: Carvedilol 6.25 MG TAB PO SCH ×2 (08:45→16:14)
[2023-01-02] MEDS: Atorvastatin Calcium 40 MG TAB PO SCH (20:34)
[2023-01-03] MEDS: AMPicillin 1 GM in Sodium Chloride 0.9% 100 ML IVPB SCH ×3 (05:34→17:54)
[2023-01-03 07:42] LABS: #Eosinphils 0.1 thou/uL (0.0-0.7); #Lymphocytes 2.3 thou/uL (1.20-3.40); #Monocytes 1.2 thou/uL (0.11-0.59); #Neutrophils 5.5 thou/uL (1.40-6.50); %Basophils 0.1 % (0.0-1.0); %Eosinophils 1.4 % (0.0-10.0); %Lymphocytes 25.4 % (21.0-51.0); %Monocytes 13.1 % (0.0-10.0); Hemoglobin 9.6 g/dL (12.0-16.0); Mean Corpuscular HGB CONC 31.6 g/dL (32.0-36.0); Mean Corpuscular Hemoglobin 29.2 pg (27.0-31.0); Mean Corpuscular Volume 92.3 fl (78.0-98.0); Mean Platelet Volume 8.4 fL (7.4-10.4); Platelet Count 219 10x3/uL (130-400); RBC Distribution Width 15.5 % (11.5-14.5); Red Blood Cell (RBC) Count 3.27 mill/uL (4.20-5.40); White Blood Cell (WBC) Count 9.2 10x3/uL (4.8-10.8)
[2023-01-03 08:02] LABS: Anion Gap 10 mmol/L (10-20); BUN (Urea Nitrogen) 11 mg/dL (9.8-20.1); Calc. Creatinine Clearance 64 mL/min (70-130); Carbon Dioxide 30 mmol/L (23-31); Chloride 105 mmol/L (98-107); Potassium 3.6 mmol/L (3.5-5.1); Sodium 141 mmol/L (136-145)
[2023-01-03 08:03] LABS: Calcium 8.2 mg/dL (7.8-10.44); Estimated GFR 85; Glucose 109 mg/dL (83-110)
[2023-01-03] MEDS: Famotidine 20 MG TAB PO SCH (09:48)
[2023-01-03] MEDS: Carvedilol 6.25 MG TAB PO SCH ×2 (09:48→17:54)
[2023-01-03] MEDS: Citalopram 20 MG TAB PO SCH (09:48)
[2023-01-03] MEDS: Gabapentin 300 MG CAP PO SCH ×3 (09:48→20:08)
[2023-01-03] MEDS: Furosemide 20 MG TAB PO SCH (09:48)
[2023-01-03] MEDS: Aspirin 81 mg Enteric Coated Tablet PO SCH (09:48)
[2023-01-03] MEDS: Heparin 5,000 UNITS/ML VIAL SC SCH ×2 (09:49→20:07)
[2023-01-03] MEDS: Atorvastatin Calcium 40 MG TAB PO SCH (20:07)
[2023-01-04] MEDS: AMPicillin 1 GM in Sodium Chloride 0.9% 100 ML IVPB SCH ×5 (00:12→22:18)
[2023-01-04 07:44] LABS: #Eosinphils 0.2 thou/uL (0.0-0.7); #Lymphocytes 2.1 thou/uL (1.20-3.40); #Monocytes 0.9 thou/uL (0.11-0.59); #Neutrophils 4.1 thou/uL (1.40-6.50); %Basophils 0.5 % (0.0-1.0); %Eosinophils 2.3 % (0.0-10.0); %Lymphocytes 29.2 % (21.0-51.0); %Monocytes 12.6 % (0.0-10.0); %Neutrophils 55.4 % (42.0-75.0); Hemoglobin 9.8 g/dL (12.0-16.0); Mean Corpuscular HGB CONC 31.4 g/dL (32.0-36.0); Mean Corpuscular Hemoglobin 29.1 pg (27.0-31.0); Mean Corpuscular Volume 92.7 fl (78.0-98.0); Mean Platelet Volume 8.5 fL (7.4-10.4); Platelet Count 228 10x3/uL (130-400); RBC Distribution Width 15.6 % (11.5-14.5); Red Blood Cell (RBC) Count 3.38 mill/uL (4.20-5.40); White Blood Cell (WBC) Count 7.3 10x3/uL (4.8-10.8)
[2023-01-04 07:54] LABS: Anion Gap 11 mmol/L (10-20); BUN (Urea Nitrogen) 10 mg/dL (9.8-20.1); Calc. Creatinine Clearance 67 mL/min (70-130); Calcium 8.5 mg/dL (7.8-10.44); Carbon Dioxide 30 mmol/L (23-31); Chloride 103 mmol/L (98-107); Estimated GFR 86; Glucose 98 mg/dL (83-110); Potassium 3.6 mmol/L (3.5-5.1); Sodium 140 mmol/L (136-145)
[2023-01-04] MEDS: Furosemide 20 MG TAB PO SCH (08:35)
[2023-01-04] MEDS: Famotidine 20 MG TAB PO SCH (08:35)
[2023-01-04] MEDS: Aspirin 81 mg Enteric Coated Tablet PO SCH (08:35)
[2023-01-04] MEDS: Citalopram 20 MG TAB PO SCH (08:35)
[2023-01-04] MEDS: Carvedilol 6.25 MG TAB PO SCH ×2 (08:35→16:54)
[2023-01-04] MEDS: Gabapentin 300 MG CAP PO SCH ×3 (08:36→20:25)
[2023-01-04] MEDS: Heparin 5,000 UNITS/ML VIAL SC SCH ×2 (08:37→20:26)
[2023-01-04] MEDS: Atorvastatin Calcium 40 MG TAB PO SCH (20:26)
[2023-01-05] MEDS: AMPicillin 1 GM in Sodium Chloride 0.9% 100 ML IVPB SCH ×3 (04:23→16:26)
[2023-01-05] MEDS: Gabapentin 300 MG CAP PO SCH ×4 (11:30→20:55)
[2023-01-05] MEDS: Famotidine 20 MG TAB PO SCH (11:31)
[2023-01-05] MEDS: Aspirin 81 mg Enteric Coated Tablet PO SCH (11:31)
[2023-01-05] MEDS: Carvedilol 6.25 MG TAB PO SCH ×2 (11:31→16:27)
[2023-01-05] MEDS: Citalopram 20 MG TAB PO SCH (11:31)
[2023-01-05] MEDS: Furosemide 20 MG TAB PO SCH (11:31)
[2023-01-05] MEDS: Heparin 5,000 UNITS/ML VIAL SC SCH ×2 (11:32→20:56)
[2023-01-05 13:01] LABS: #Eosinphils 0.1 thou/uL (0.0-0.7); #Lymphocytes 2.3 thou/uL (1.20-3.40); #Monocytes 1.1 thou/uL (0.11-0.59); #Neutrophils 5.3 thou/uL (1.40-6.50); %Basophils 0.4 % (0.0-1.0); %Eosinophils 1.6 % (0.0-10.0); %Lymphocytes 25.8 % (21.0-51.0); %Monocytes 12.5 % (0.0-10.0); %Neutrophils 59.7 % (42.0-75.0); Hemoglobin 9.4 g/dL (12.0-16.0); Mean Corpuscular HGB CONC 31.5 g/dL (32.0-36.0); Mean Corpuscular Hemoglobin 28.8 pg (27.0-31.0); Mean Corpuscular Volume 91.5 fl (78.0-98.0); Mean Platelet Volume 8.2 fL (7.4-10.4); Platelet Count 180 10x3/uL (130-400); RBC Distribution Width 15.8 % (11.5-14.5); Red Blood Cell (RBC) Count 3.28 mill/uL (4.20-5.40); White Blood Cell (WBC) Count 8.8 10x3/uL (4.8-10.8)
[2023-01-05 13:18] LABS: Anion Gap 10 mmol/L (10-20); BUN (Urea Nitrogen) 11 mg/dL (9.8-20.1); Calc. Creatinine Clearance 66 mL/min (70-130); Calcium 8.5 mg/dL (7.8-10.44); Carbon Dioxide 30 mmol/L (23-31); Chloride 104 mmol/L (98-107); Estimated GFR 86; Glucose 99 mg/dL (83-110); Potassium 3.6 mmol/L (3.5-5.1); Sodium 140 mmol/L (136-145)
[2023-01-05] MEDS: Atorvastatin Calcium 40 MG TAB PO SCH (20:55)
[2023-01-06] MEDS: Carvedilol 6.25 MG TAB PO SCH ×2 (08:15→17:24)
[2023-01-06] MEDS: Citalopram 20 MG TAB PO SCH (08:16)
[2023-01-06] MEDS: Gabapentin 300 MG CAP PO SCH ×3 (08:16→20:41)
[2023-01-06] MEDS: Aspirin 81 mg Enteric Coated Tablet PO SCH (08:16)
[2023-01-06] MEDS: Famotidine 20 MG TAB PO SCH (08:17)
[2023-01-06] MEDS: Heparin 5,000 UNITS/ML VIAL SC SCH ×2 (08:17→20:41)
[2023-01-06] MEDS: Furosemide 20 MG TAB PO SCH (08:17)
[2023-01-06 20:40] VITALS: BP 126/70; TEMP 98.5
[2023-01-06] MEDS: Atorvastatin Calcium 40 MG TAB PO SCH (20:40)
== END 2023-01-06 21:39 | DRG 64 ==
LOC: ERS 18:15 → ERHOLD 20:33 → 2NO 22:36 → T4-B 01-02 18:11
PROVIDERS: ADMIT Student in an Organized Health Care Education/Training Program; ATTEND Internal Medicine
DX: I63.9 Cerebral infarction, unspecified (principal); G93.41 Metabolic encephalopathy; N39.0 Urinary tract infection, site not specified; N17.9 Acute kidney failure, unspecified; M62.82 Rhabdomyolysis; I50.22 Chronic systolic (congestive) heart failure; I42.8 Other cardiomyopathies; E44.0 Moderate protein-calorie malnutrition; I11.0 Hypertensive heart disease with heart failure; Z66 Do not resuscitate; F03.90 Unspecified dementia, unspecified severity, without behavioral disturbance, psychotic disturbance, mood disturbance, and anxiety; E86.0 Dehydration; E11.9 Type 2 diabetes mellitus without complications; I27.20 Pulmonary hypertension, unspecified; I08.1 Rheumatic disorders of both mitral and tricuspid valves; F32.A Depression, unspecified; R29.715 NIHSS score 15; E87.5 Hyperkalemia; B95.2 Enterococcus as the cause of diseases classified elsewhere; R53.81 Other malaise; Z88.8 Allergy status to other drugs, medicaments and biological substances; Z79.899 Other long term (current) drug therapy; Z90.49 Acquired absence of other specified parts of digestive tract; Z98.890 Other specified postprocedural states; Z20.822 Contact with and (suspected) exposure to COVID-19; Z68.24 Body mass index [BMI] 24.0-24.9, adult
CPT/HCPCS: 36415; 36416; 51701; 70450; 70496; 70498; 70551; 71045; 74018; 80048; 80053; 80061; 81003; 81015; 82550; 82553; 83735; 83880; 84484; 85025; 85610; 85730; 87040; 87077; 87086; 87186; 93005; 93010; 95712; 95819; 95957; 96365; J0290; J0696; J1644; J3475; J3490; J7120; Q9967; S0028; U0003; U0005